=== PATIENT | male | born 1965 | race Two or more races ===

== ENCOUNTER 2022-07-15 15:25 | Inpatient (IN) | payer OTHER ==
[~2022-07-15] VITALS: Ht 170.2 cm; Wt 115.7 kg
[2022-07-15 16:38] VITALS: BP 121/69
[2022-07-15] MEDS ORDERED: HYDR-3980 PO (17:28)
[2022-07-15] MEDS ORDERED: CLOT12CR TP (17:28)
[2022-07-15] MEDS ORDERED: BISA10SU61 RC (17:28)
[2022-07-15] MEDS ORDERED: DOCU250C14 PO (17:28)
[2022-07-15] MEDS ORDERED: PANT40TA2 PO (17:28)
[2022-07-15] MEDS ORDERED: MAGN400O6 PO (17:28)
[2022-07-15] MEDS ORDERED: BENZ1LOZ58 MM (17:28)
[2022-07-15] MEDS ORDERED: DIPH25CA83 PO (17:28)
[2022-07-15] MEDS ORDERED: MAG-55 PO (17:28)
[2022-07-15] MEDS ORDERED: ZOLP5TAB2 PO (17:28)
[2022-07-15] MEDS ORDERED: ASPI-1169 PO (17:28)
[2022-07-15] MEDS ORDERED: CLON0.1T PO (17:28)
[2022-07-15] MEDS ORDERED: MAG HYDROX/AL HYDROX/SIMETH 30 ML LIQUID UDC PO PRN (18:30)
[2022-07-15] MEDS ORDERED: ZOLPIDEM 5 MG TABLET PO PRN (18:30)
[2022-07-15] MEDS ORDERED: MAGNESIUM HYDROXIDE 30 ML LIQUID UDC PO PRN (18:30)
[2022-07-15] MEDS ORDERED: diphenhydrAMINE 25 MG CAP PO PRN (18:30)
[2022-07-15] MEDS ORDERED: BISACODYL 10 MG SUPP.RECT RC PRN ×2 (19:00)
[2022-07-15] MEDS ORDERED: CLONIDINE HCL 0.1 MG TABLET PO PRN (19:00)
[2022-07-15] MEDS: HYDROCODONE/APAP 10-325 MG TABLET PO PRN (19:55)
[2022-07-15 20:00] VITALS: BP 122/63
[2022-07-15] MEDS: CLOTRIMAZOLE 1% CREAM 30 GM TUBE TOP SCH (20:13)
[2022-07-15] MEDS: REMEDY ESSENTIAL ZINC PASTE 113 GM TOP SCH (20:14)
[2022-07-15] MEDS: DOCUSATE SODIUM 100 MG CAPSULE PO SCH (20:25)
[2022-07-15] MEDS ORDERED: BISACODYL 10 MG SUPP.RECT RC SCH (21:00)
[2022-07-16] MEDS: HYDROCODONE/APAP 10-325 MG TABLET PO PRN ×3 (03:59→17:07)
[2022-07-16 04:00] VITALS: BP 122/64
[2022-07-16] MEDS: PANTOPRAZOLE SODIUM 40 MG TABLET.DR PO SCH (06:20)
[2022-07-16 07:55] VITALS: BP 126/71
[2022-07-16] MEDS: ASPIRIN 81 MG TAB.CHEW PO SCH ×2 (08:41→17:07)
[2022-07-16] MEDS: DOCUSATE SODIUM 100 MG CAPSULE PO SCH ×2 (08:41→20:36)
[2022-07-16] MEDS: CLOTRIMAZOLE 1% CREAM 30 GM TUBE TOP SCH ×2 (08:47→20:37)
[2022-07-16] MEDS: REMEDY ESSENTIAL ZINC PASTE 113 GM TOP SCH ×2 (08:48→20:37)
[2022-07-16] MEDS ORDERED: CLONIDINE HCL 0.1 MG TABLET PO PRN (09:00)
[2022-07-16] MEDS ORDERED: CLOTRIMAZOLE 1% CREAM 30 GM TUBE TP SCH (09:00)
[2022-07-16] MEDS: ENOXAPARIN SODIUM 40 MG/0.4 ML DISP.SYRIN SQ SCH (14:47)
[2022-07-16 15:58] VITALS: BP 129/58
[2022-07-16] MEDS: MAGNESIUM HYDROXIDE 30 ML LIQUID UDC PO SCH (17:46)
[2022-07-16 20:00] VITALS: BP 127/61
[2022-07-16] MEDS: SENNOSIDES 1 TABLET PO SCH (20:36)
[2022-07-17 04:00] VITALS: BP 128/76
[2022-07-17] MEDS: HYDROCODONE/APAP 10-325 MG TABLET PO PRN ×4 (04:33→23:11)
[2022-07-17] MEDS: PANTOPRAZOLE SODIUM 40 MG TABLET.DR PO SCH (06:14)
[2022-07-17 07:34] LABS: HEMATOCRIT 35.8 % (36.7-47.1); MEAN CORPUSCULAR HEMOGLOBIN 29.8 uug (23.8-33.4); MEAN CORPUSCULAR VOLUME 87.8 fL (73.0-96.2); PLATELET COUNT (AUTO) 320 K/uL (152-348)
[2022-07-17 07:56] VITALS: BP 117/71
[2022-07-17 08:04] LABS: CREATININE 0.7 mg/dL (0.6-1.3); MAGNESIUM 2.4 mg/dL (1.8-2.4); PHOSPHOROUS 4.4 mg/dL (2.5-4.9); POTASSIUM 4.3 mmol/L (3.5-5.1)
[2022-07-17] MEDS: MAGNESIUM HYDROXIDE 30 ML LIQUID UDC PO SCH ×2 (09:27→16:46)
[2022-07-17] MEDS: DOCUSATE SODIUM 100 MG CAPSULE PO SCH ×2 (09:27→20:11)
[2022-07-17] MEDS: ASPIRIN 81 MG TAB.CHEW PO SCH ×2 (09:28→16:46)
[2022-07-17] MEDS: ENOXAPARIN SODIUM 40 MG/0.4 ML DISP.SYRIN SQ SCH (09:29)
[2022-07-17] MEDS: REMEDY ESSENTIAL ZINC PASTE 113 GM TOP SCH ×2 (09:42→20:11)
[2022-07-17] MEDS: CLOTRIMAZOLE 1% CREAM 30 GM TUBE TOP SCH ×2 (09:42→20:17)
[2022-07-17 16:07] VITALS: BP 130/68
[2022-07-17] MEDS: ENSURE ENLIVE (VAN) 240 ML LIQUID PO SCH (17:46)
[2022-07-17 20:00] VITALS: BP 111/57
[2022-07-17] MEDS: SENNOSIDES 1 TABLET PO SCH (20:11)
[2022-07-18 04:00] VITALS: BP 110/59
[2022-07-18] MEDS: PANTOPRAZOLE SODIUM 40 MG TABLET.DR PO SCH (06:10)
[2022-07-18 08:07] VITALS: BP 115/63
[2022-07-18] MEDS: DOCUSATE SODIUM 100 MG CAPSULE PO SCH ×2 (08:18→20:36)
[2022-07-18] MEDS: ASPIRIN 81 MG TAB.CHEW PO SCH ×2 (08:18→16:21)
[2022-07-18] MEDS: REMEDY ESSENTIAL ZINC PASTE 113 GM TOP SCH ×2 (08:19→20:36)
[2022-07-18] MEDS: ENSURE ENLIVE (VAN) 240 ML LIQUID PO SCH ×2 (08:19→16:22)
[2022-07-18] MEDS: HYDROCODONE/APAP 10-325 MG TABLET PO PRN ×2 (08:19→14:25)
[2022-07-18] MEDS: MAGNESIUM HYDROXIDE 30 ML LIQUID UDC PO SCH ×2 (08:19→16:22)
[2022-07-18] MEDS: CLOTRIMAZOLE 1% CREAM 30 GM TUBE TOP SCH ×2 (08:19→20:38)
[2022-07-18] MEDS: ENOXAPARIN SODIUM 40 MG/0.4 ML DISP.SYRIN SQ SCH (08:20)
[2022-07-18 15:52] VITALS: BP 109/52
[2022-07-18 20:00] VITALS: BP 125/61
[2022-07-18] MEDS: SENNOSIDES 1 TABLET PO SCH (20:36)
[2022-07-19 04:00] VITALS: BP 114/63
[2022-07-19] MEDS: PANTOPRAZOLE SODIUM 40 MG TABLET.DR PO SCH (06:17)
[2022-07-19 08:06] VITALS: BP 148/60
[2022-07-19] MEDS: ASPIRIN 81 MG TAB.CHEW PO SCH ×2 (08:17→17:44)
[2022-07-19] MEDS: DOCUSATE SODIUM 100 MG CAPSULE PO SCH ×2 (08:18→21:25)
[2022-07-19] MEDS: HYDROCODONE/APAP 10-325 MG TABLET PO PRN ×2 (08:18→17:44)
[2022-07-19] MEDS: CLOTRIMAZOLE 1% CREAM 30 GM TUBE TOP SCH ×2 (08:19→21:27)
[2022-07-19] MEDS: MAGNESIUM HYDROXIDE 30 ML LIQUID UDC PO SCH ×2 (08:20→17:00)
[2022-07-19] MEDS: REMEDY ESSENTIAL ZINC PASTE 113 GM TOP SCH ×2 (08:20→21:27)
[2022-07-19] MEDS: ENOXAPARIN SODIUM 40 MG/0.4 ML DISP.SYRIN SQ SCH (08:21)
[2022-07-19] MEDS: ENSURE ENLIVE (VAN) 240 ML LIQUID PO SCH ×2 (08:22→17:45)
[2022-07-19 16:00] VITALS: BP 114/71
[2022-07-19 20:00] VITALS: BP 121/69
[2022-07-19] MEDS: SENNOSIDES 1 TABLET PO SCH (21:25)
[2022-07-20 04:00] VITALS: BP 111/64
[2022-07-20] MEDS: PANTOPRAZOLE SODIUM 40 MG TABLET.DR PO SCH (06:01)
[2022-07-20 07:51] VITALS: BP 114/68
[2022-07-20] MEDS: ENSURE ENLIVE (VAN) 240 ML LIQUID PO SCH ×2 (08:39→17:14)
[2022-07-20] MEDS: MAGNESIUM HYDROXIDE 30 ML LIQUID UDC PO SCH ×2 (08:40→17:13)
[2022-07-20] MEDS: ASPIRIN 81 MG TAB.CHEW PO SCH ×2 (08:40→17:13)
[2022-07-20] MEDS: DOCUSATE SODIUM 100 MG CAPSULE PO SCH ×2 (08:40→21:01)
[2022-07-20] MEDS: ENOXAPARIN SODIUM 40 MG/0.4 ML DISP.SYRIN SQ SCH (08:41)
[2022-07-20] MEDS: REMEDY ESSENTIAL ZINC PASTE 113 GM TOP SCH ×2 (08:42→21:03)
[2022-07-20] MEDS: CLOTRIMAZOLE 1% CREAM 30 GM TUBE TOP SCH ×2 (08:42→21:02)
[2022-07-20] MEDS: HYDROCODONE/APAP 10-325 MG TABLET PO PRN ×2 (08:46→17:21)
[2022-07-20 16:11] VITALS: BP 108/63
[2022-07-20 20:13] VITALS: BP 113/56
[2022-07-20] MEDS: SENNOSIDES 1 TABLET PO SCH (21:01)
[2022-07-21 04:00] VITALS: BP 118/58
[2022-07-21] MEDS: PANTOPRAZOLE SODIUM 40 MG TABLET.DR PO SCH (06:06)
[2022-07-21] MEDS: ENSURE ENLIVE (VAN) 240 ML LIQUID PO SCH ×2 (07:40→16:20)
[2022-07-21] MEDS: DOCUSATE SODIUM 100 MG CAPSULE PO SCH ×2 (08:30→21:00)
[2022-07-21] MEDS: ASPIRIN 81 MG TAB.CHEW PO SCH ×2 (08:30→16:20)
[2022-07-21] MEDS: ENOXAPARIN SODIUM 40 MG/0.4 ML DISP.SYRIN SQ SCH (08:30)
[2022-07-21] MEDS: MAGNESIUM HYDROXIDE 30 ML LIQUID UDC PO SCH ×2 (08:36→16:21)
[2022-07-21] MEDS: HYDROCODONE/APAP 10-325 MG TABLET PO PRN (08:36)
[2022-07-21 08:42] VITALS: BP 117/72
[2022-07-21] MEDS: REMEDY ESSENTIAL ZINC PASTE 113 GM TOP SCH ×2 (09:40→21:00)
[2022-07-21] MEDS: CLOTRIMAZOLE 1% CREAM 30 GM TUBE TOP SCH ×2 (09:40→21:00)
[2022-07-21 15:43] VITALS: BP 119/96
[2022-07-21 19:40] VITALS: BP 118/72
[2022-07-21] MEDS: SENNOSIDES 1 TABLET PO SCH (21:00)
[2022-07-22 04:00] VITALS: BP 109/61
[2022-07-22] MEDS: PANTOPRAZOLE SODIUM 40 MG TABLET.DR PO SCH (06:33)
[2022-07-22] MEDS: ENSURE ENLIVE (VAN) 240 ML LIQUID PO SCH ×2 (07:30→17:03)
[2022-07-22 07:50] VITALS: BP 128/67
[2022-07-22] MEDS: ASPIRIN 81 MG TAB.CHEW PO SCH ×2 (08:35→16:47)
[2022-07-22] MEDS: ENOXAPARIN SODIUM 40 MG/0.4 ML DISP.SYRIN SQ SCH (08:36)
[2022-07-22] MEDS: HYDROCODONE/APAP 10-325 MG TABLET PO PRN ×2 (08:38→16:50)
[2022-07-22] MEDS: DOCUSATE SODIUM 100 MG CAPSULE PO SCH ×2 (08:43→20:54)
[2022-07-22] MEDS: MAGNESIUM HYDROXIDE 30 ML LIQUID UDC PO SCH ×2 (08:44→17:00)
[2022-07-22] MEDS: CLOTRIMAZOLE 1% CREAM 30 GM TUBE TOP SCH ×2 (08:44→20:09)
[2022-07-22] MEDS: REMEDY ESSENTIAL ZINC PASTE 113 GM TOP SCH ×2 (08:44→20:08)
[2022-07-22 15:05] VITALS: BP 114/60
[2022-07-22 20:31] VITALS: BP 107/63
[2022-07-22] MEDS: SENNOSIDES 1 TABLET PO SCH (20:54)
[2022-07-23 04:01] VITALS: BP 108/56
[2022-07-23] MEDS: PANTOPRAZOLE SODIUM 40 MG TABLET.DR PO SCH (06:08)
[2022-07-23 07:46] VITALS: BP 112/71
[2022-07-23] MEDS: DOCUSATE SODIUM 100 MG CAPSULE PO SCH ×2 (08:14→20:30)
[2022-07-23] MEDS: HYDROCODONE/APAP 10-325 MG TABLET PO PRN ×2 (08:14→20:31)
[2022-07-23] MEDS: ASPIRIN 81 MG TAB.CHEW PO SCH ×2 (08:14→16:05)
[2022-07-23] MEDS: MAGNESIUM HYDROXIDE 30 ML LIQUID UDC PO SCH ×2 (08:15→16:06)
[2022-07-23] MEDS: ENSURE ENLIVE (VAN) 240 ML LIQUID PO SCH ×2 (08:16→17:20)
[2022-07-23] MEDS: ENOXAPARIN SODIUM 40 MG/0.4 ML DISP.SYRIN SQ SCH (08:18)
[2022-07-23] MEDS: REMEDY ESSENTIAL ZINC PASTE 113 GM TOP SCH ×2 (08:18→20:31)
[2022-07-23] MEDS: CLOTRIMAZOLE 1% CREAM 30 GM TUBE TOP SCH ×2 (08:20→20:33)
[2022-07-23 15:46] VITALS: BP 117/63
[2022-07-23 20:00] VITALS: BP 112/50
[2022-07-23] MEDS: SENNOSIDES 1 TABLET PO SCH (20:30)
[2022-07-24 05:33] VITALS: BP 115/62
[2022-07-24] MEDS: PANTOPRAZOLE SODIUM 40 MG TABLET.DR PO SCH (06:12)
[2022-07-24 08:00] VITALS: BP 106/52
[2022-07-24] MEDS: HYDROCODONE/APAP 10-325 MG TABLET PO PRN ×2 (08:27→21:05)
[2022-07-24] MEDS: DOCUSATE SODIUM 100 MG CAPSULE PO SCH ×2 (08:27→21:04)
[2022-07-24] MEDS: ASPIRIN 81 MG TAB.CHEW PO SCH ×2 (08:27→16:38)
[2022-07-24] MEDS: MAGNESIUM HYDROXIDE 30 ML LIQUID UDC PO SCH ×2 (08:27→16:38)
[2022-07-24] MEDS: ENOXAPARIN SODIUM 40 MG/0.4 ML DISP.SYRIN SQ SCH (08:28)
[2022-07-24] MEDS: REMEDY ESSENTIAL ZINC PASTE 113 GM TOP SCH ×2 (08:31→21:06)
[2022-07-24] MEDS: CLOTRIMAZOLE 1% CREAM 30 GM TUBE TOP SCH ×2 (08:32→21:06)
[2022-07-24] MEDS: ENSURE ENLIVE (VAN) 240 ML LIQUID PO SCH ×2 (08:33→17:06)
[2022-07-24 16:00] VITALS: BP 109/58
[2022-07-24 20:00] VITALS: BP 124/69
[2022-07-24] MEDS: SENNOSIDES 1 TABLET PO SCH (21:04)
[2022-07-25 04:30] VITALS: BP 111/65
[2022-07-25] MEDS: PANTOPRAZOLE SODIUM 40 MG TABLET.DR PO SCH (06:06)
[2022-07-25 08:14] VITALS: BP 111/82
[2022-07-25] MEDS: ASPIRIN 81 MG TAB.CHEW PO SCH ×2 (08:25→16:17)
[2022-07-25] MEDS: HYDROCODONE/APAP 10-325 MG TABLET PO PRN ×2 (08:25→20:22)
[2022-07-25] MEDS: DOCUSATE SODIUM 100 MG CAPSULE PO SCH ×2 (08:25→20:22)
[2022-07-25] MEDS: ENOXAPARIN SODIUM 40 MG/0.4 ML DISP.SYRIN SQ SCH (08:26)
[2022-07-25] MEDS: MAGNESIUM HYDROXIDE 30 ML LIQUID UDC PO SCH ×2 (08:26→16:17)
[2022-07-25] MEDS: ENSURE ENLIVE (VAN) 240 ML LIQUID PO SCH ×2 (08:26→17:06)
[2022-07-25] MEDS: CLOTRIMAZOLE 1% CREAM 30 GM TUBE TOP SCH ×2 (08:30→20:24)
[2022-07-25] MEDS: REMEDY ESSENTIAL ZINC PASTE 113 GM TOP SCH ×2 (08:31→20:24)
[2022-07-25 15:58] VITALS: BP 114/57
[2022-07-25] MEDS: SENNOSIDES 1 TABLET PO SCH (20:22)
[2022-07-25 20:23] VITALS: BP 118/73
[2022-07-26 04:34] VITALS: BP 111/77
[2022-07-26] MEDS: PANTOPRAZOLE SODIUM 40 MG TABLET.DR PO SCH (06:12)
[2022-07-26 07:22] LABS: HEMATOCRIT 35.1 % (36.7-47.1); MEAN CORPUSCULAR HEMOGLOBIN 29.2 uug (23.8-33.4); MEAN CORPUSCULAR VOLUME 88.1 fL (73.0-96.2); PLATELET COUNT (AUTO) 379 K/uL (152-348)
[2022-07-26 07:33] LABS: BILIRUBIN,TOTAL 0.3 mg/dL (0.2-1.0); CREATININE 0.8 mg/dL (0.6-1.3); MAGNESIUM 2.3 mg/dL (1.8-2.4); POTASSIUM 4.2 mmol/L (3.5-5.1); TOTAL PROTEIN, SERUM 6.5 g/dL (6.4-8.2)
[2022-07-26 07:49] VITALS: BP 127/77
[2022-07-26] MEDS: ENOXAPARIN SODIUM 40 MG/0.4 ML DISP.SYRIN SQ SCH (08:00)
[2022-07-26] MEDS: ENSURE ENLIVE (VAN) 240 ML LIQUID PO SCH ×2 (08:29→16:47)
[2022-07-26] MEDS: MAGNESIUM HYDROXIDE 30 ML LIQUID UDC PO SCH ×2 (08:29→08:50)
[2022-07-26] MEDS: ASPIRIN 81 MG TAB.CHEW PO SCH ×2 (08:29→16:46)
[2022-07-26] MEDS: DOCUSATE SODIUM 100 MG CAPSULE PO SCH ×3 (08:29→20:31)
[2022-07-26] MEDS: REMEDY ESSENTIAL ZINC PASTE 113 GM TOP SCH ×2 (08:30→20:31)
[2022-07-26] MEDS: CLOTRIMAZOLE 1% CREAM 30 GM TUBE TOP SCH ×2 (08:30→20:31)
[2022-07-26] MEDS: HYDROCODONE/APAP 10-325 MG TABLET PO PRN ×2 (08:34→19:36)
[2022-07-26] MEDS ORDERED: MAGNESIUM HYDROXIDE 30 ML LIQUID UDC PO PRN (09:00)
[2022-07-26 16:08] VITALS: BP 104/54
[2022-07-26 20:12] VITALS: BP 113/60
[2022-07-26] MEDS: SENNOSIDES 1 TABLET PO SCH (20:31)
[2022-07-27 04:22] VITALS: BP 107/61
[2022-07-27] MEDS: PANTOPRAZOLE SODIUM 40 MG TABLET.DR PO SCH (06:04)
[2022-07-27 07:55] VITALS: BP 104/72
[2022-07-27] MEDS: ENSURE ENLIVE (VAN) 240 ML LIQUID PO SCH ×2 (08:00→16:55)
[2022-07-27] MEDS: ENOXAPARIN SODIUM 40 MG/0.4 ML DISP.SYRIN SQ SCH (08:38)
[2022-07-27] MEDS: DOCUSATE SODIUM 100 MG CAPSULE PO SCH ×2 (08:38→20:42)
[2022-07-27] MEDS: ASPIRIN 81 MG TAB.CHEW PO SCH ×2 (08:38→16:56)
[2022-07-27] MEDS: HYDROCODONE/APAP 10-325 MG TABLET PO PRN ×2 (08:39→18:18)
[2022-07-27 09:05] VITALS: BP 104/72
[2022-07-27] MEDS: CLOTRIMAZOLE 1% CREAM 30 GM TUBE TOP SCH ×2 (09:57→20:43)
[2022-07-27] MEDS: REMEDY ESSENTIAL ZINC PASTE 113 GM TOP SCH ×2 (09:57→20:43)
[2022-07-27 15:52] VITALS: BP 103/56
[2022-07-27 20:00] VITALS: BP 91/55
[2022-07-27] MEDS: SENNOSIDES 1 TABLET PO SCH (20:42)
[2022-07-28 04:00] VITALS: BP 107/55
[2022-07-28] MEDS: PANTOPRAZOLE SODIUM 40 MG TABLET.DR PO SCH (06:19)
[2022-07-28 07:30] VITALS: BP 110/63
[2022-07-28] MEDS: ASPIRIN 81 MG TAB.CHEW PO SCH ×2 (08:12→17:32)
[2022-07-28] MEDS: HYDROCODONE/APAP 10-325 MG TABLET PO PRN (08:13)
[2022-07-28] MEDS: DOCUSATE SODIUM 100 MG CAPSULE PO SCH ×2 (08:13→20:33)
[2022-07-28] MEDS: CLOTRIMAZOLE 1% CREAM 30 GM TUBE TOP SCH ×2 (08:14→20:33)
[2022-07-28] MEDS: ENOXAPARIN SODIUM 40 MG/0.4 ML DISP.SYRIN SQ SCH (08:14)
[2022-07-28] MEDS: ENSURE ENLIVE (VAN) 240 ML LIQUID PO SCH ×2 (08:15→17:32)
[2022-07-28] MEDS: REMEDY ESSENTIAL ZINC PASTE 113 GM TOP SCH ×2 (08:15→20:33)
[2022-07-28 15:58] VITALS: BP 110/56
[2022-07-28 20:00] VITALS: BP 113/58
[2022-07-28] MEDS: SENNOSIDES 1 TABLET PO SCH (20:32)
[2022-07-29] MEDS: PANTOPRAZOLE SODIUM 40 MG TABLET.DR PO SCH (06:18)
[2022-07-29 06:19] VITALS: BP 121/62
[2022-07-29 07:27] VITALS: BP 119/72
[2022-07-29] MEDS: HYDROCODONE/APAP 10-325 MG TABLET PO PRN (08:06)
[2022-07-29] MEDS: DOCUSATE SODIUM 100 MG CAPSULE PO SCH (08:06)
[2022-07-29] MEDS: ASPIRIN 81 MG TAB.CHEW PO SCH (08:06)
[2022-07-29] MEDS: ENSURE ENLIVE (VAN) 240 ML LIQUID PO SCH (08:07)
[2022-07-29] MEDS: CLOTRIMAZOLE 1% CREAM 30 GM TUBE TOP SCH (08:07)
[2022-07-29] MEDS: REMEDY ESSENTIAL ZINC PASTE 113 GM TOP SCH (08:07)
== END 2022-07-29 14:35 | disposition home health service (06) | DRG 560 ==
PROVIDERS: ADMIT Physical Medicine & Rehabilitation Pain Medicine; ATTEND Physical Medicine & Rehabilitation Pain Medicine
DX: Z47.1 Aftercare following joint replacement surgery (principal); D68.59 Other primary thrombophilia; M16.52 Unilateral post-traumatic osteoarthritis, left hip; D63.8 Anemia in other chronic diseases classified elsewhere; E66.01 Morbid (severe) obesity due to excess calories; Z68.39 Body mass index [BMI] 39.0-39.9, adult; K59.00 Constipation, unspecified; Z96.642 Presence of left artificial hip joint; W19.XXXD Unspecified fall, subsequent encounter
CPT/HCPCS: 36415; 73502; 83735; 84100; 85025; 97535-GO-CO; A4663; A6213; J1650